=== PATIENT | female | born 1985 | race Two or more races ===

== ENCOUNTER → 2018-09-08 | Outpatient (CLI) | payer OTHER ==
[2018-09-08 14:03] LABS: BACTERIA (WET MOUNT) 3+ BACTERIA SEEN; EPITHELIALS (WET MOUNT) 3+ EPITHELIALS SEEN; RBCS (WET MOUNT) RARE RBCS SEEN; T.VAGINALIS (WET MOUNT) NO TRICHOMONAS SEEN; WBCS (WET MOUNT) 2+ WBCS SEEN; YEAST (WET MOUNT) NO YEAST SEEN
[2018-09-08 15:30] LABS: CHLAM PCR NOT DETECTED (NOT DETECT); GON PCR NOT DETECTED (NOT DETECT)
== END ==
LOC: LAB 13:45
PROVIDERS: ATTEND Nurse Practitioner Family
DX: N89.8 Other specified noninflammatory disorders of vagina (principal); R30.0 Dysuria; R82.71 Bacteriuria
CPT/HCPCS: 87086; 87088; 87210; 87491; 87591

== ENCOUNTER 2020-02-01 03:01 | Outpatient (CLI) | payer OTHER ==
[2020-02-01 03:33] LABS: APPEARANCE,URINE SLIGHTLY-CLOUDY; BILIRUBIN,URINE NEGATIVE (NEGATIVE); COLOR,URINE YELLOW; GLUCOSE, URINE NEGATIVE (NEGATIVE); KETONES,URINE NEGATIVE (NEGATIVE); LEUKOCYTE ESTERASE,URINE SMALL (NEGATIVE); NITRITE,URINE NEGATIVE (NEGATIVE); PROTEIN,URINE NEGATIVE (NEGATIVE); URINE SPECIFIC GRAVITY 1.008; UROBILINOGEN,URINE NEGATIVE mg/dL (<2.0)
[2020-02-01 03:42] LABS: URINE AMPHETAMINES SCREEN NEGATIVE; URINE BARBITURATES SCREEN NEGATIVE; URINE BENZODIAZEPINES SCREEN NEGATIVE; URINE COCAINE SCREEN NEGATIVE; URINE MARIJUANA (THC) SCREEN NEGATIVE; URINE METHADONE SCREEN NEGATIVE; URINE PHENCYCLIDINE SCREEN NEGATIVE
--- NOTE | 2020-02-01 05:54 | RADIOLOGY REPORT (SQ) ---
Ultrasound OB limited on 02/01/2020 at 4:10 AM CLINICAL INDICATION: Vaginal bleeding, evaluate cervical length COMPARISON: None FINDINGS: Limited sonographic imaging is performed throughout the pelvis by transabdominal approach, both transverse and sagittal images are obtained. Single living intrauterine fetus is noted in breech presentation. Cervical length measures approximately 3.4 cm and the cervix is closed. Placenta is posterior to fundal in location with no evidence of placenta previa or abruption. Positive cardiac activity is noted with heart rate of 160 bpm. Normal amount of amniotic fluid is noted with amniotic fluid index of 11.2 cm. No gross abnormality is noted on limited imaging. measurements for dates were not performed. IMPRESSION: Single living intrauterine fetus in breech presentation with no acute abnormality noted.
== END 2020-02-01 04:45 | disposition home or self-care (01) ==
LOC: LC 03:01
PROVIDERS: ATTEND Obstetrics & Gynecology Gynecology
DX: O46.93 Antepartum hemorrhage, unspecified, third trimester (principal); Z3A.28 28 weeks gestation of pregnancy
CPT/HCPCS: 76815; 80307; 81001

== ENCOUNTER 2020-04-11 06:19 | Inpatient (IN) | payer OTHER, MEDICAID ==
[2020-04-11] MEDS ORDERED: RINGERS SOLUTION,LACTATED 1,000 ML IV ONE (06:53)
[2020-04-11] MEDS ORDERED: RINGERS SOLUTION,LACTATED 1,000 ML IV PRN (06:53)
[2020-04-11] MEDS ORDERED: PENICILLIN G POTASSIUM 5,000,000 UNIT in DEXTROSE 5%-WATER 100 ML IV ONE (06:53)
[2020-04-11] MEDS ORDERED: OXYTOCIN 10 UNIT/ML VIAL ONE (06:56)
[2020-04-11] MEDS ORDERED: MISOPROSTOL 0.2 MG TABLET ONE (06:56)
[2020-04-11] MEDS ORDERED: PENICILLIN G-K 5 MILLION UNIT VIAL ONE (06:56)
[2020-04-11] MEDS ORDERED: OXYTOCIN/0.9 % SODIUM CHLORIDE 30 UNIT/500 ML RTUINJ ONE (06:56)
[2020-04-11] MEDS ORDERED: LIDOCAINE 1% INJ-PF (10 MG/ML) 30 ML SDV ONE ×2 (06:56→09:02)
--- NOTE | 2020-04-11 07:17 | Admission Physical ---
Datetime Report Generated by CPN: 04/11/2020 07:17 CURRENT ADMISSION Chief Complaint: Uterine Contractions; Suspected Ruptured Membranes Admit Impression : Term, Intrauterine Admit Plan: Admit to Unit; Initiate Labor Protocol ALLERGIES Medication Allergies: No Medication Allergies: No Known Allergies (02/01/2020) Latex: Unknown Food Allergies: lactose intolerant OBSTETRICAL HISTORY EDC: 04/23/2020 00:00 : 2 Para: 1 Term: 1 Gestational Diabetes: No Rh Sensitization: No Incompetent Cervix: No RAVEN: No Infertility: No ART Treatment: No Uterine Anomaly: No IUGR: No Hx Previous C/S: No Macrosomia: No Hx Loss/Stillborn: No PIH: No Hx : No Placenta Previa/Abruption: No Depression/PP Depression: No PTL/PROM: No Post Hemorrhage: No Current Procedures: Ultrasound Obstetrical History Comments: G1- PPH, 7lbs 11oz girl G2- 2 vessel cord SEE RECORDS Alcohol: No Marijuana : No Cocaine: No Other Illicit Drugs: No Cigarettes: Never Smoker. [id number] MEDICAL HISTORY Diabetes: No Blood Transfusion: No Pulmonary Disease (Asthma, TB): No Breast Disease: No Hypertension: No Kiln Hand Surgery: No Heart Disease: No Hosp/Surgery: No Autoimmune Disorder: No Anesthetic Complications: No Kidney Disease: No Abnormal Pap Smear: No Neuro/Epilepsy: No Psychiatric Disorders: No Other Medical Diseases: No Hepatitis/Liver Disease: No Significant Family History: No Varicosities/Phlebitis: No Trauma/Violence : No Thyroid Dysfunction: No INFECTIOUS HISTORY Gonorrhea: No Genital Herpes: No Chlamydia: No Syphilis: No HIV/AIDS Exposure: No HPV: Yes PHYSICAL EXAM General: Normal HEENT: Normal Neurologic: Normal Thyroid: Normal Heart: Normal Lungs: Normal Breast: Normal Back: Normal Abdomen: Normal Genitourinary Exam: Normal Extremities: Normal DTRs: Normal Pelvic Type: Adequate Vital Signs: Reviewed; Within Normal Limits VAGINAL EXAM Dilatation: 4 Effacement: 75 Station: -2 Contraction Comments: regular contractions MEMBRANES Membranes: Ruptured FETUS A EGA: 38.2 Monitoring: External US FHR- Baseline: 130 Variability: Moderate 6-25bpm Accelerations: 15X15 Decelerations: None FHR Category: Category I Presentation: Vertex Admit Comment: at 38.2 wks EGA in active labor -Reports SROM at 0540 clear -Regular ctx -Admit to LDR -CEFM and [place] -NPO and IVFs : LR at 125 cc/hr after 1 liter bolus -GBS pos: PCN -Hx one prior , anticipate PLANS FOR LABOR AND DELIVERY Labor and Delivery: Plan Pain Management: Epidural Feeding Preference: Breast Benefit of Breast Feed Discussed: Yes Circumcision: N/A INFORMED CONSENT Informed Consent Obtained: Vaginal Delivery; Section Delivery; Vacuum/Forceps Assist; Risks, Benefits and Alternatives Discussed Signature: with User ID: Sahra : with User ID: Sahra
[2020-04-11 07:30] LABS: APPEARANCE,URINE SLIGHTLY-CLOUDY; BILIRUBIN,URINE NEGATIVE (NEGATIVE); COLOR,URINE YELLOW; GLUCOSE, URINE NEGATIVE (NEGATIVE); KETONES,URINE NEGATIVE (NEGATIVE); LEUKOCYTE ESTERASE,URINE NEGATIVE (NEGATIVE); NITRITE,URINE NEGATIVE (NEGATIVE); PROTEIN,URINE NEGATIVE (NEGATIVE); URINE SPECIFIC GRAVITY 1.015; UROBILINOGEN,URINE NEGATIVE mg/dL (<2.0)
[2020-04-11 07:38] LABS: ABSOLUTE EOSINOPHILS # (AUTO) 0.1 10^3/uL (0.0-0.6); ABSOLUTE LYMPHOCYTES (AUTO) 1.9 10^3/uL (0.5-4.7); ABSOLUTE MONOCYTES (AUTO) 0.7 10^3/uL (0.1-1.4); ABSOLUTE NEUT (AUTO) 4.1 10^3/uL (1.7-8.2); BASOPHILS % (AUTO) 0.7 % (0-2); HEMATOCRIT 37.7 % (36.0-47.0); HEMOGLOBIN 13.1 g/dL (12.0-15.5); LYMPHOCYTES % (AUTO) 27.7 % (13-45); MEAN CORPUSCULAR HEMOGLOBIN 31.6 pg (27.0-33.4); MEAN CORPUSCULAR HGB CONC 34.8 g/dL (32.0-36.0); MEAN CORPUSCULAR VOLUME 91 fl (80-97); MONOCYTES % (AUTO) 9.7 % (3-13); PLATELET COUNT 267 10^3/uL (150-450); RED BLOOD COUNT 4.15 10^6/uL (3.72-5.28); RED CELL DISTRIBUTION WIDTH 13.8 % (11.5-14.0); SEGMENTED NEUTROPHILS % (AUTO) 59.9 % (42-78); TOTAL CELLS COUNTED % (AUTO) 100 %; WHITE BLOOD COUNT 6.8 10^3/uL (4.0-10.5)
[2020-04-11 07:49] LABS: URINE AMPHETAMINES SCREEN NEGATIVE; URINE BARBITURATES SCREEN NEGATIVE; URINE BENZODIAZEPINES SCREEN NEGATIVE; URINE COCAINE SCREEN NEGATIVE; URINE MARIJUANA (THC) SCREEN NEGATIVE; URINE METHADONE SCREEN NEGATIVE; URINE PHENCYCLIDINE SCREEN NEGATIVE
[2020-04-11] MEDS ORDERED: FENTANYL/BUPIVACAINE/NS/PF 300 MCG/150 ML RTUINJ EPI ONE (08:03)
[2020-04-11] MEDS ORDERED: EPHEDRINE SULFATE INJ 50 MG/1 ML AMPULE ONE (08:03)
[2020-04-11] MEDS ORDERED: ROPIVACAINE HCL 0.2% INJ/PF (2 MG/ML) 20 ML SDV ONE (08:03)
--- NOTE | 2020-04-11 08:21 | L&D Progress Notes ---
PROGRESS NOTES Datetime Report Generated by CPN: 04/11/2020 08:21 PROGRESS NOTE Informed Consent Obtained: Vaginal Delivery; Section Delivery; Vacuum/Forceps Assist; Risks, Benefits and Alternatives Discussed Comment: Cat 1 strip, moaning with uc's, waiting for epidural, + GBS, uc's q 1-2, no Pitocin anticipate VAGINAL EXAM Dilatation: 4 Effacement: 75 Station: -2 Contractions: regular contractions LAST VAGINAL EXAM-NURSING Nursing Exam Dilitation: 4.0 Nursing Exam Effacement: 80 Nursing Exam Station: -2 MEMBRANES Membranes: Ruptured FETUS A Monitoring: External US FHR Category: Category I : 38.2 Presentation: Vertex SIGNATURE SIGNATURE: ,[id number];,[id number] Assignment: Judi Calzada MD Signature: with User ID: Gretchen : with User ID: Gretchen
[2020-04-11] MEDS ORDERED: LIDOCAINE 2% INJ-PF (20 MG/ML) 10 ML AMPUL ONE (09:01)
--- NOTE | 2020-04-11 09:05 | Warning Signs in Babies ---
VOD Warning Signs Datetime Report Generated by [facility]: 04/11/2020 09:05 VOD#608 -Warning Signs in Babies: Viewed with Parent(s)/Family (02/01/2020 03:10:Elton Rios RN)
--- NOTE | 2020-04-11 09:06 | Warning Signs in Babies ---
VOD Warning Signs Datetime Report Generated by CPN: 04/11/2020 09:06 VOD#608 -Warning Signs in Babies: Viewed with Parent(s)/Family (04/11/2020 09:04:Elton Rios RN)
[2020-04-11] MEDS ORDERED: PENICILLIN G POTASSIUM 2,500,000 UNIT in DEXTROSE 5%-WATER 50 ML IV SCH (10:54)
[2020-04-11] MEDS ORDERED: METHYLERGONOVINE MALEATE INJ/PF 0.2 MG/1 ML AMPULE ONE (11:45)
[2020-04-11] MEDS ORDERED: PROMETHAZINE HCL INJ 25 MG/1 ML VIAL IV PRN (12:00)
[2020-04-11] MEDS ORDERED: DIBUCAINE 1% OINTMENT 28 GM TP PRN (12:00)
[2020-04-11] MEDS ORDERED: PROMETHAZINE HCL 25 MG SUPP.RECT PR PRN (12:00)
[2020-04-11] MEDS ORDERED: OXYTOCIN/0.9 % SODIUM CHLORIDE 30 UNIT/500 ML RTUINJ IV PRN (12:00)
[2020-04-11] MEDS ORDERED: DIPHENHYDRAMINE HCL 25 MG CAPSULE PO PRN (12:00)
[2020-04-11] MEDS ORDERED: METHYLERGONOVINE MALEATE INJ/PF 0.2 MG/1 ML AMPULE IM PRN (12:00)
[2020-04-11] MEDS ORDERED: NA PHOS,M-B/NA PHOS,DI-BA (ADULT) 133 ML ENEMA PR PRN (12:00)
[2020-04-11] MEDS ORDERED: DIPH/PERTUSS(ACELL)/TETANUS VAC/PF 0.5 ML SYR (>=10YO) IM PRN (12:00)
[2020-04-11] MEDS ORDERED: MEASLES,MUMPS&RUBELLA VACC/PF 0.5 ML VIAL SUBCUT PRN (12:00)
[2020-04-11] MEDS ORDERED: PROMETHAZINE HCL 25 MG TABLET PO PRN (12:00)
[2020-04-11] MEDS ORDERED: MAGNESIUM HYDROXIDE SUSP 30 ML UDCUP PO PRN (12:00)
[2020-04-11] MEDS ORDERED: ACETAMINOPHEN 650 MG SUPP.RECT PR PRN (12:00)
[2020-04-11] MEDS ORDERED: BENZOCAINE/MENTHOL AEROSOL SPRAY 56 ML TOP PRN (12:00)
[2020-04-11] MEDS ORDERED: ACETAMINOPHEN WITH CODEINE #3 TABLET PO PRN ×2 (12:00)
[2020-04-11] MEDS ORDERED: PSEUDOEPHEDRINE HCL 30 MG TABLET PO PRN (12:00)
[2020-04-11] MEDS ORDERED: GLYCERIN/WITCH HAZEL LEAF 1 EACH MED..WIPE TP PRN (12:00)
[2020-04-11] MEDS ORDERED: MISOPROSTOL 0.2 MG TABLET PR PRN (12:00)
--- NOTE | 2020-04-11 14:02 | Delivery Summary ---
Del Sum A-C Datetime Report Generated by CPN: 04/11/2020 14:01 DELIVERY PERSONNEL DELIVERY PERSONNEL: [id number] Delivery Doctor:: Fransisca Chaparro CNM Nurse Pulper Tender Certified:: Fransisca Chaparro CNM Labor and Delivery Nurse:: Elton Rios RNsalesperson wigs Nurse:: TABATHA Conley Nursery Nurse:: Jocelyn Strauss RN Nursery Nurse:: RICKI Boudreaux/AALIYAH: Zoie Whitfield CNA II MATERNAL INFORMATION Delivery Anesthesia: Epidural Medications After Delivery: Pitocin 30 Units in 500ml NS/D5W; Methergine 0.2mg IM; Cytotec 1000mcg Per Rectum/Vagina Meds After Delivery Comment: prophylactic per provider Delivery QBL: 125 Maternal Complications: None Provider Comments: Baby rotated and quickly delivered a live female infant from OA to CATRINA over intact perineum, nuchal cord x 2, easily reduced, placed on mothers abd, cord clamped and cut by FOB after 2 minutes, baby screaming moving all extremeties, spont delivery of grossly nl intact placenta, dirty hitchcock presentation, uterine massage, methergine and cytotec for hx of PPH, FFFM baby and mom in recovery in stable condition LABOR SUMMARY EDC: 04/23/2020 00:00 No. Babies in Womb: 1 Attempted: No Labor Anesthesia: Epidural LABOR INFORMATION Reason for Induction: Not Applicable Onset of Labor: 04/11/2020 08:30 Complete Dilatation: 04/11/2020 10:31 Oxytocin: N/A Group B Beta Strep: pos Antibiotics # of Doses: 2 Antibiotics Time of Last Dose: 04/11/2020 11:00 Name of Antibiotic Given: Penicillin Steroids Given: None Reason Steroids Not Administered: Not Applicable MEMBRANES Membranes Rupture Method: Spontaneous Rupture of Membranes: 04/11/2020 05:40 Length of Rupture (hr): 6.05 Amniotic Fluid Color: Clear Amniotic Fluid Amount: Moderate Amniotic Fluid Odor: Normal STAGES OF LABOR Stage 1 hr: 2 Stage 1 min: 1 Stage 2 hr: 1 Stage 2 min: 12 Stage 3 hr: 0 Stage 3 min: 4 Total Time in Labor hr: 3 Total Time in Labor min: 17 VAGINAL DELIVERY Episiotomy: None Laceration #1: None Laceration Extension #1: N/A Laceration Repair: Not Applicable Sponge Count Correct: N/A Sharps Count Correct: N/A CSECTION DELIVERY Primary Indication: N/A Secondary Indication: N/A CSection Incidence: N/A Labor: N/A Elective: N/A CSection Incision: N/A BABY A INFORMATION Infant Delivery Date/Time: 04/11/2020 11:43 Method of Delivery: Vaginal Nurse Controlled Delivery: No Born in Route : No : N/A Forceps: N/A Vacuum Extraction: N/A Shoulder Dystocia : No PRESENTATION/POSITION BABY A Presentation: Cephalic Cephalic Presentation: Vertex Vertex Position: Right Occipital Anterior Breech Presentation: N/A PLACENTA INFORMATION BABY A Placenta Delivery Time : 04/11/2020 11:47 Placenta Method of Delivery: Spontaneous Placenta Status: Delivered SCORES BABY A Heart Rate 1 min: >100 bpm Resp Effort 1 min: Good Cry Reflex Irritability 1 min: Cough or Sneeze or Pulls Away Muscle Tone 1 min: Active Motion Color 1 min: Body [place], Extremities Blue Resuscitation Effort 1 min: Tactile Stimulation SCORE 1 MIN: 9 Heart Rate 5 min: >100 bpm Resp Effort 5 min: Good Cry Reflex Irritability 5 min: Cough or Sneeze or Pulls Away Muscle Tone 5 min: Active Motion Color 5 min: Body [place], Extremities Blue Resuscitation Effort 5 min: N/A SCORE 5 MIN: 9 Resuscitation Effort 10 min: N/A INFORMATION BABY A Gestational Age at Delivery: 38.2 Gestational Status: Early Term- 37- 38.6 Weeks Outcome : Liveborn Infant Condition : Stable Sex: Female IDENTIFICATION BABY A Verification Date/Time: 04/11/2020 11:52 ID Band Number: [id number] Mother's Name Verified: Yes Infant RN Verifying : T Gabriel RNC Additional Verifying Personnel: S Camp RNC WEIGHT/LENGTH BABY A Infant Birthweight (gm): 3448 Weight (lb): 7 Infant Weight (oz): 10 Length (in): 20.50 Length (cm): 52.07 CORD INFORMATION BABY A No. Cord Vessels: 3 Nuchal Cord : Around Neck x1, Loose Cord Blood Taken: Yes-For Storage (Mom's Blood type +) Suction: None ASSESSMENT BABY A Infant Complications: None Physical Findings at Delivery: Within Normal Limits Respirations: Appears Normal Skin to Skin: No Reprint Sorter/ALS Called : No Care By: Eddie Everett RN Transferred To: Remains with Mother
--- NOTE | 2020-04-11 14:02 | Birth Certificate Data ---
Cert Data Datetime Report Generated by CPN: 04/11/2020 14:01 CERTIFICATE DATA 47a. Care: Yes (02/01/2020 03:10:Elton Rios RN) 47b. Date of First Visit: 10/07/2019 00:00 (02/01/2020 03:10:Didi Giordano RN) 47c. Date of Last Visit: 04/05/2020 00:00 (02/01/2020 03:10:Elton Rios RN) 47d. Number of Visits: 14 (02/01/2020 03:10:Elton Rios RN) 48a. Number of Prev Live Births: 1 (02/01/2020 03:10:Didi Giordano RN) 48b. Now Livin (02/01/2020 03:10:Elton Rios RN) 48c. Live Births Now : 0 (02/01/2020 03:10:QS system process) 48d. Date of Last Live : 01/21/2015 00:00 (02/01/2020 03:10:Elton Rios RN) 48e. Losses: 0 (02/01/2020 03:10:Elton Rios RN) RISK FACTORS IN THIS 49a. Diabetes: No (02/01/2020 03:10:Didi Giordano RN) 49b. Hypertension: No (02/01/2020 03:10:Didi Giordano RN) 49c. Previous Births: 0 (02/01/2020 03:10:Elton Rios RN) 49d. Stillborns: No (02/01/2020 03:10:Didi Giordano RN) 49d. IUGR: No (02/01/2020 03:10:Didi Giordano RN) 49e. Infertility Treatment: No (02/01/2020 03:10:Didi Giordano RN) 49f. Previous Cesareans: 0 (02/01/2020 03:10:Elton Rios RN) Mother's Height 50b. Height Inches: 62 (04/11/2020 13:54:QS system process) Mother's Weight 51a. Pre- Weight (lbs): 166 (02/01/2020 03:10:Elton Rios RN) 51b. Weight at Delivery (lbs): 189 (04/11/2020 13:54:QS system process) 52. Dt Last Normal Menses Began: 07/12/2019 00:00 (02/01/2020 03:10:Elton Rios RN) Infections Present/Treated 53a. Gonorrhea: No (02/01/2020 03:10:Didi Giordano RN) Results this Hospital Visit : Negative (02/01/2020 03:10:Didi Giordano RN) 53b. Syphilis: No (02/01/2020 03:10:Didi Giordano RN) Results this Hospital Visit: NONREACTIVE (04/11/2020 07:28:QS system process) 53c. Chlamydia: No (02/01/2020 03:10:Didi Giordano RN) Results this Hospital Visit: Negative (02/01/2020 03:10:Didi Giordano RN) 53d. Hepatitis B: No (02/01/2020 03:10:Elton Rios RN) Results this Hospital Visit: Negative (02/01/2020 03:10:TABATHA Sultana) 53e. Hepatitis C: Negative (02/01/2020 03:10:TABATHA Sultana) 53h. Mother Tested for HBsAG: Yes (02/01/2020 03:10:TABATHA Sultana) 53i. Date Tested: 10/07/2019 00:00 (02/01/2020 03:10:Didi Giordano RN) 53j. Test Result: Negative (02/01/2020 03:10:TABATHA Sultana) Obstetric Procedures 54a, b, c. Obstetric Procedures: Ultrasound; NST (02/01/2020 03:10:Elton Rios RN) Cigarette Smoking Cigarette Smoking: Never Smoker. [id number] (02/01/2020 03:10:Didi Giordano RN) 55a. 3 Months Before Preg - Ci (02/01/2020 03:10:Elton Rios RN) 55a. Packs: 0 (02/01/2020 03:10:Elton Rios RN) 55b. 1st Trimester of Preg- Ci (02/01/2020 03:10:Elton Rios RN) 55b. Packs: 0 (02/01/2020 03:10:Elton Rios RN) 55c. 2nd Trimester of Preg- Ci (02/01/2020 03:10:Elton Rios RN) 55c. Packs: 0 (02/01/2020 03:10:Elton Rios RN) 55d. 3rd Trimester of Preg- Ci (02/01/2020 03:10:Elton Rios RN) 55d. Packs: 0 (02/01/2020 03:10:Elton Rios RN) Onset of Labor 56a. PROM >12 Hrs: 6.05 (02/01/2020 03:10:QS system process) 56b. Precipitous Labor <3 Hrs: 3 (02/01/2020 03:10:QS system process) 56c. Prolonged Labor > 20 Hrs: 3 (02/01/2020 03:10:QS system process) 57a. Induction of Labor: N/A (02/01/2020 03:10:TABATHA Conley) 57c. Non-Vertex Presentation A: Vertex (02/01/2020 03:10:TABATHA Conley) 57d. Steroids - Lung Mat: None (02/01/2020 03:10:TABATHA Conley) 57d. Steroids - Lung Mat: Not Applicable (02/01/2020 03:10:TABATHA Conley) 57e. Antibiotics During Labor: 04/11/2020 11:00 (02/01/2020 03:10:TABATHA Conley) 57g. Moderate/Heavy Meconium: Clear (04/11/2020 07:24:Elton Rios RN) 57h. Intolerance of Labor: N/A (02/01/2020 03:10:TABATHA Conley) : N/A (02/01/2020 03:10:TABATHA Conley) 57i. Epidural/Spinal Anesthesia: Epidural (02/01/2020 03:10:Greer Jeter [facility]) Method of Delivery 58a. Forceps - Unsuccessful A: N/A (02/01/2020 03:10:Greer Jeter [facility]) 58b. Vacuum - Unsuccessful A: N/A (02/01/2020 03:10:Greer Jeter, [facility]) 58c. Presentation at 58c. Presentation at - A : Vertex ([facility] 58c. Presentation at - A : N/A (02/01/2020 03:10:[facility], [facility]) 58c. Presentation at - A : Cephalic (04/11/2020 10:31:Elton Rios RN) Final Route and Method of Del 58d. Baby A Route/Delivery: Vaginal (02/01/2020 03:10:[facility]) 58e. Trial of Labor Attempted: No (02/01/2020 03:10:[facility]) 58e. Trial of Labor Attempted A: N/A (02/01/2020 03:10:[facility]) Maternal Morbidity 59b. 3rd or 4th Degree Lacs: None (02/01/2020 03:10:[facility]) Birthweight Baby A: 3448 (02/01/2020 03:10:Elton Rios RN) 60a. Pounds : 7 (02/01/2020 03:10:QS system process) 60b. Ounces: 10 (02/01/2020 03:10:QS system process) 61. GA at Delivery Baby A: 38.2 (02/01/2020 03:10:[facility], [facility]) : Early Term- 37- 38.6 Weeks (02/01/2020 03:10:QS system process) 62a. 5 Minute Baby A: 9 (02/01/2020 03:10:QS system process)
[2020-04-11] MEDS: IBUPROFEN 800 MG TABLET PO SCH ×2 (14:56→21:54)
[2020-04-11] MEDS: DOCUSATE SODIUM 100 MG CAPSULE PO SCH (17:51)
[2020-04-11] MEDS: FERROUS SULFATE 325 MG TABLET PO SCH (17:51)
[2020-04-11] MEDS: FAMOTIDINE 20 MG TABLET PO SCH (21:54)
[2020-04-12] MEDS: IBUPROFEN 800 MG TABLET PO SCH ×3 (06:03→21:23)
[2020-04-12 06:42] LABS: HEMATOCRIT 35.1 % (36.0-47.0); HEMOGLOBIN 12.3 g/dL (12.0-15.5); MEAN CORPUSCULAR HEMOGLOBIN 31.8 pg (27.0-33.4); MEAN CORPUSCULAR HGB CONC 35.1 g/dL (32.0-36.0); MEAN CORPUSCULAR VOLUME 90 fl (80-97); PLATELET COUNT 236 10^3/uL (150-450); RED BLOOD COUNT 3.88 10^6/uL (3.72-5.28); RED CELL DISTRIBUTION WIDTH 13.8 % (11.5-14.0); WHITE BLOOD COUNT 9.4 10^3/uL (4.0-10.5)
[2020-04-12] MEDS: FAMOTIDINE 20 MG TABLET PO SCH ×2 (09:40→21:23)
[2020-04-12] MEDS: SENNOSIDES/DOCUSATE 8.6-50 MG 1 EACH TABLET PO SCH (09:40)
[2020-04-12] MEDS: FERROUS SULFATE 325 MG TABLET PO SCH ×2 (09:41→17:22)
[2020-04-12] MEDS: PRENATAL VITAMIN W DHA CAPSULE PO SCH (09:41)
[2020-04-12] MEDS: DOCUSATE SODIUM 100 MG CAPSULE PO SCH ×2 (09:41→17:22)
--- NOTE | 2020-04-12 12:35 | PDOC PROGRESS REPORT ---
Subjective-OB Progress Note for:: 04/12/20 Subjective: 34yo s/p ppd 1. Pt is ambulating, voiding and without difficulty. Bonding well with baby, reports pain is well controlled with pain medication at this time, no other concerns Physical Exam (OB) Vital Signs: Temp Pulse Resp BP Pulse Ox 97.8 F 77 16 116/85 96 04/12/20 08:10 04/12/20 08:00 04/12/20 08:00 04/12/20 08:00 04/12/20 08:00 Intake & Output 04/11/20 04/12/20 04/13/20 06:59 06:59 06:59 Intake Total 800 Output Total 1402 Balance -602 Weight 86.4 kg - General General Appearance: Appears well In distress: None - PIH/Pre-Eclampsia DTR's: 1 + Clonus: Negative Headache: Absent Epigastric Pain: No Visual Changes: No - Maternal Morbidity 59. Maternal Morbidity (serious complications experinced by the mother associated with labor and delivery: None of the above - Episiotomy/Laceration Site Condition: N/A - Lochia Lochia Amount: Small 10-25 ml Lochia Color: Rubra/Red - Abdomen Description: Soft Hernia Present: No Fundal Description: Firm, Midline Fundal Height: u/u - u/2 - Respiratory Respiratory Status: No respiratory distress - Extremities Upper extremity: Normal inspection Lower extremities: Edema - Neurological Cognition: Normal Orientation: AAOx4 - Psychological Associated symptoms: Normal affect, Normal mood Objective-Diagnostic Laboratory: 04/12/20 06:31 04/12/20 06:31 WBC 9.4 RBC 3.88 Hgb 12.3 Hct 35.1 L MCV 90 MCH 31.8 MCHC 35.1 RDW 13.8 Plt Count 236 Assessment and Plan(PN) - Assessment and Plan (1) History of hemorrhage Is this a current diagnosis for this admission?: Yes Plan: received prophylaxis at delivery, bleeding stable today, no anemia (2) Delivery normal Is this a current diagnosis for this admission?: Yes Plan: routine pp care - Time Spent with Patient Time with patient: Less than 15 minutes Medications reviewed and adjusted accordingly: Yes - Disposition Anticipated Discharge Disposition: Home, Self Care Anticipated Discharge Timeframe: within 24 hours
[2020-04-13] MEDS: IBUPROFEN 800 MG TABLET PO SCH ×2 (05:37→13:15)
[2020-04-13] MEDS: FERROUS SULFATE 325 MG TABLET PO SCH (10:30)
[2020-04-13] MEDS: DOCUSATE SODIUM 100 MG CAPSULE PO SCH (10:30)
[2020-04-13] MEDS: PRENATAL VITAMIN W DHA CAPSULE PO SCH (10:30)
[2020-04-13] MEDS: SENNOSIDES/DOCUSATE 8.6-50 MG 1 EACH TABLET PO SCH (10:30)
[2020-04-13] MEDS: FAMOTIDINE 20 MG TABLET PO SCH (10:30)
[2020-04-13 12:18] VITALS: BP 120/77
--- NOTE | 2020-04-13 12:32 | PDOC DISCHARGE SUMMARY ---
Impression - Admit/DC Date/PCP Admission Date/Primary Care Provider: 04/11/20 06:30 NOAM HOANG MD Discharge Date: 04/13/20 - Discharge Diagnosis (1) Delivery normal Is this a current diagnosis for this admission?: Yes - Additional Information Discharge Diet: Regular Discharge Activity: Balance Activity w/Rest, Pelvic Rest Referrals: NOAM HOANG MD [Primary Care Provider] - Prescriptions: Ibuprofen [Motrin 800 mg Tablet] 800 mg PO Q8HP PRN #60 tablet PRN Reason: Home Medications: No.137/Iron/Folic Acd [ Vitamin Tablet] 1 tab PO DAILY 01/20/15 Ibuprofen [Motrin 800 mg Tablet] 800 mg PO Q8HP PRN #60 tablet 04/13/20 Hospital Course 59. Maternal Morbidity (serious complications experinced by the mother associated with labor and delivery: None of the above Results Laboratory Results: WBC 9.4 10^3/uL (4.0-10.5) 04/12/20 06:31 RBC 3.88 10^6/uL (3.72-5.28) 04/12/20 06:31 Hgb 12.3 g/dL (12.0-15.5) 04/12/20 06:31 Hct 35.1 % (36.0-47.0) L 04/12/20 06:31 MCV 90 fl (80-97) 04/12/20 06:31 MCH 31.8 pg (27.0-33.4) 04/12/20 06:31 MCHC 35.1 g/dL (32.0-36.0) 04/12/20 06:31 RDW 13.8 % (11.5-14.0) 04/12/20 06:31 Plt Count 236 10^3/uL (150-450) 04/12/20 06:31 Lymph % (Auto) 27.7 % (13-45) 04/11/20 07:28 [place] % (Auto) 9.7 % (3-13) 04/11/20 07:28 Eos % (Auto) 2.0 % (0-6) 04/11/20 07:28 Baso % (Auto) 0.7 % (0-2) 04/11/20 07:28 Absolute Neuts (auto) 4.1 10^3/uL (1.7-8.2) 04/11/20 07:28 Absolute Lymphs (auto) 1.9 10^3/uL (0.5-4.7) 04/11/20 07:28 Absolute Monos (auto) 0.7 10^3/uL (0.1-1.4) 04/11/20 07:28 Absolute Eos (auto) 0.1 10^3/uL (0.0-0.6) 04/11/20 07:28 Absolute Basos (auto) 0.0 10^3/uL (0.0-0.2) 04/11/20 07:28 Seg Neutrophils % 59.9 % (42-78) 04/11/20 07:28 Urine Color YELLOW 04/11/20 06:28 Urine Appearance SLIGHTLY-CLOUDY 04/11/20 06:28 Urine pH 6.0 (5.0-9.0) 04/11/20 06:28 Ur Specific [place] 1.015 04/11/20 06:28 Urine Protein NEGATIVE mg/dL (NEGATIVE) 04/11/20 06:28 Urine Glucose (UA) NEGATIVE mg/dL (NEGATIVE) 04/11/20 06:28 Urine Ketones NEGATIVE mg/dL (NEGATIVE) 04/11/20 06:28 Urine Blood MODERATE (NEGATIVE) H 04/11/20 06:28 Urine Nitrite NEGATIVE (NEGATIVE) 04/11/20 06:28 Urine Bilirubin NEGATIVE (NEGATIVE) 04/11/20 06:28 Urine Urobilinogen NEGATIVE mg/dL (<2.0) 04/11/20 06:28 Ur Leukocyte Esterase NEGATIVE (NEGATIVE) 04/11/20 06:28 Urine Ascorbic Acid NEGATIVE (NEGATIVE) 04/11/20 06:28 Urine Opiates Screen NEGATIVE 04/11/20 06:28 Urine Methadone Screen NEGATIVE 04/11/20 06:28 Ur Barbiturates Screen NEGATIVE 04/11/20 06:28 Ur Phencyclidine Scrn NEGATIVE 04/11/20 06:28 Ur Amphetamines Screen NEGATIVE 04/11/20 06:28 U Benzodiazepines Scrn NEGATIVE 04/11/20 06:28 Urine Cocaine Screen NEGATIVE 04/11/20 06:28 U Marijuana (THC) Screen NEGATIVE 04/11/20 06:28 RPR NONREACTIVE (NONREACTIVE) 04/11/20 07:28 Blood Type B POSITIVE 04/11/20 07:28 Antibody Screen NEGATIVE 04/11/20 07:28 Plan Plan of Treatment: follow up in 4 weeks at [facility] for post check
== END 2020-04-13 14:05 | disposition home or self-care (01) | DRG 807 ==
LOC: LC 06:19 → LR 06:30 → 2S 13:54
PROVIDERS: ADMIT Obstetrics & Gynecology; ATTEND Obstetrics & Gynecology
PROC: 10E0XZZ Delivery of Products of Conception, External Approach (ICD-10-PCS; principal; 2020-04-11)
DX: O99.824 Streptococcus B carrier state complicating childbirth (principal); Z37.0 Single live birth; O69.81X0 Labor and delivery complicated by cord around neck, without compression, not applicable or unspecified; Z3A.38 38 weeks gestation of pregnancy
CPT/HCPCS: 1967; 36415; 80307; 81005; 85025; 85027; 86592; 86850; 86900; 86901; 94760; J2210; J2540; J2590; J2795; J3010; J3490; J7060

== ENCOUNTER 2020-07-10 09:47 | Day surgery (SDC) | payer OTHER, MEDICAID ==
[2020-07-04 12:56] LABS: HEMATOCRIT 42.7 % (36.0-47.0); HEMOGLOBIN 14.3 g/dL (12.0-15.5); MEAN CORPUSCULAR HEMOGLOBIN 29.2 pg (27.0-33.4); MEAN CORPUSCULAR HGB CONC 33.6 g/dL (32.0-36.0); MEAN CORPUSCULAR VOLUME 87 fl (80-97); PLATELET COUNT 239 10^3/uL (150-450); RED BLOOD COUNT 4.92 10^6/uL (3.72-5.28); RED CELL DISTRIBUTION WIDTH 13.4 % (11.5-14.0)
[2020-07-04 13:02] LABS: APPEARANCE,URINE CLEAR; BILIRUBIN,URINE NEGATIVE (NEGATIVE); COLOR,URINE STRAW; GLUCOSE, URINE NEGATIVE (NEGATIVE); KETONES,URINE NEGATIVE (NEGATIVE); LEUKOCYTE ESTERASE,URINE TRACE (NEGATIVE); NITRITE,URINE NEGATIVE (NEGATIVE); PROTEIN,URINE NEGATIVE (NEGATIVE); URINE SPECIFIC GRAVITY 1.008; UROBILINOGEN,URINE NEGATIVE mg/dL (<2.0)
[~2020-07-10 09:47] MED LIST: LACTATED RINGERS 1000 ML IV PRN; LIDOCAINE 0.5% INJ-PF (5 MG/ML) 50 ML SDV SUBCUT PRN; SUCCINYLCHOLINE CHLORIDE INJ 200 MG/10 ML VIAL ONE
[2020-07-10] MEDS ORDERED: DEXAMETHASONE SOD PHOSPHATE INJ 4 MG/1 ML VIAL ONE (10:51)
[2020-07-10] MEDS ORDERED: ONDANSETRON HCL INJ/PF 4 MG/2 ML SDV ONE (10:51)
[2020-07-10] MEDS ORDERED: MIDAZOLAM 2 MG/2 ML INJ ONE (10:51)
[2020-07-10] MEDS ORDERED: FENTANYL CITRATE INJ/PF 100 MCG/2 ML AMPUL ONE (10:51)
[2020-07-10] MEDS ORDERED: PROPOFOL INJ 200 MG/20 ML VIAL IV ONE (10:51)
[2020-07-10] MEDS ORDERED: FENTANYL CITRATE INJ/PF 100 MCG/2 ML AMPUL IV PRN ×3 (12:45)
[2020-07-10] MEDS ORDERED: MORPHINE SULFATE 10 MG/ML INJ IV PRN (12:45)
[2020-07-10] MEDS ORDERED: PROMETHAZINE HCL INJ 25 MG/1 ML VIAL IV PRN ×2 (12:45)
[2020-07-10] MEDS ORDERED: DIPHENHYDRAMINE HCL 50 MG/ML VIAL IV PRN (12:45)
[2020-07-10] MEDS ORDERED: MEPERIDINE HCL/PF INJ 25 MG/1 ML DISP.SYRIN IV PRN (12:45)
[2020-07-10] MEDS ORDERED: OXYCODONE-ACETAMINOPHEN 5-325 MG TABLET PO PRN ×4 (12:45→13:21)
[2020-07-10] MEDS ORDERED: ONDANSETRON HCL INJ/PF 4 MG/2 ML SDV IV PRN (12:45)
[2020-07-10] MEDS ORDERED: KETOROLAC TROMETHAMINE INJ/PF 30 MG/1 ML SDV IV PRN (13:21)
[2020-07-10] MEDS ORDERED: RINGERS SOLUTION,LACTATED 1,000 ML IV PRN (13:21)
[2020-07-10] MEDS ORDERED: IBUPROFEN 800 MG TABLET PO PRN (13:21)
--- NOTE | 2020-07-10 13:21 | Operative Report ---
Operative Report DATE OF SURGERY: 07/10/20 PREOPERATIVE DIAGNOSIS: Unwanted fertility POSTOPERATIVE DIAGNOSIS: Same as above OPERATION: Laparoscopic bilateral tubal ligation SURGEON: MARCELLO NAVAS ANESTHESIA: GA TISSUE REMOVED OR ALTERED: None COMPLICATIONS: None ESTIMATED BLOOD LOSS: 5 ml INTRAOPERATIVE FINDINGS: Normal appearing bilateral fallopian tubes and ovaries PROCEDURE: IV fluids: per anesthesia record Urinary output: 100 cc Findings: Normal-appearing uterus bilateral fallopian tubes and ovaries. Liver edge seen and appears normal Position: To recovery room in stable condition Description of procedure: The patient was taken to the operating room and general anesthesia was administered and found to be adequate. She was then placed on the OR table in the dorsal lithotomy position. The Patient was prepped and draped in usual sterile fashion. Timeout was taken. A bivalve speculum was used to visualize the cervix. The anterior lip of the cervix was then grasped with a [employer] uterine manipulator and this was left in place to manipulate the uterus during tubal ligation. At this time attention was turned of the patient's abdomen and sterile gloves were donned a 1 cm infra umbilical incision was made horizontally and carried down to the level of the rectus fascia. The rectus fascia was then grasped with 2 Evin clamps elevated and incised with Yu scissors. A digital sweep was done noting entry into the peritoneum. The fascia was tagged bilaterally with 0 -vicryl suture. A #10 [place] trocar was positioned and CO2 gas was used to insufflate the abdomen to a quantity sufficient for the laparoscopy. The laparoscope was inserted and a survey was done of the abdomen pictures were obtained. Findings noted normal anatomy. A second 5 mm trocar was placed in the midline suprapubic area under direct visualization to facilitate in tubal ligation. The right fallopian tube was identified and traced to its fimbriated end. The right ovary was noted to be normal. A Fil[place] clip was then placed approximately 1 to 2 cm from the uterine cornu across the right fallopian tube. The [place] clip was noted to surround the tube in its entirety good blanching and hemostasis was noted. The left fallopian tube was then traced to its fibriated end and a Filshie clip was placed 1 to 2 cm from the uterine cornu on the left fallopian tube. The Filshie clip was noted to surround the tube in its entirety with good blanching and hemostasis was noted. Pictures were obtained. At this point the procedure was terminated. All instrument removed from the patient's abdomen and CO2 gas was allowed to escape. The suprapubic port was removed under direct visualization and then the infraumbilical port was removed. The fascia was closed with 0 Vicryl suture. The skin was closed with 3-0 Monocryl in a series of interrupted stitiches. The skin incision was then clean dried and Dermabond was applied over the skin incision. All instrument sponge and needle counts were correct x3 for the procedure the patient tolerated the procedure well. She will proceed to recovery room in stable condition
--- NOTE | 2020-07-10 13:31 | Discharge Summary ---
Discharge Summary (SDC) - Discharge Final Diagnosis: Unwanted fertility Date of Surgery: 07/10/20 Discharge Date: 07/10/20 Condition: Stable Treatment or Instructions: Walk frequently Regular diet No heavy lifting > 10 lbs No intercourse until post-op visit May shower as needed and pat incision dry No driving a car until narcotic prescriptions stopped and can make sudden movements Prescriptions: Ibuprofen [Motrin 800 mg Tablet] 800 mg PO Q8 10 Days #30 tablet Oxycodone HCl/Acetaminophen [Percocet 5-325 mg Tablet] 1 tab PO Q4 PRN 5 Days #20 tablet PRN Reason: For Pain Scale 4-5 Referrals: MARCELLO NAVAS MD [ACTIVE PROVISIONAL STAFF] - (F/u in 2 wks for post op visit) Respiratory Treatments at Home: Deep Breathing/Coughing Discharge Activity: Activity As Tolerated, No Driving - until not taking narcotic medication and able to make sudden movements, No Lifting Over 10 Pounds, Pelvic Rest, No tub bath, Walk Frequently Home Care Assistance: None Needed Report the Following to Your Physician Immediately: Shortness of Breath, Vomiting, Fever over 101 Degrees, Unusual Bleeding, Drainage-Foul Smelling, IV Site Infection Signs
[2020-07-10] MEDS ORDERED: KETOROLAC TROMETHAMINE INJ/PF 30 MG/1 ML SDV ONE (13:50)
[2020-07-10] MEDS ORDERED: OXYCODONE-ACETAMINOPHEN 5-325 MG TABLET ONE (13:51)
[2020-07-10 15:48] VITALS: BP 133/99
== END 2020-07-10 15:15 | disposition home or self-care (01) ==
LOC: OROUT 09:47
PROVIDERS: ATTEND Obstetrics & Gynecology
DX: Z30.2 Encounter for sterilization (principal); E66.9 Obesity, unspecified; Z01.812 Encounter for preprocedural laboratory examination; Z20.822 Contact with and (suspected) exposure to COVID-19
CPT/HCPCS: 58671; 36415; 85027; 87635; 81005; 81025; J2250; J1100; J3010; J1885; J2405; J2704; C9803; 851; J0330